=== PATIENT | male | born 1955 | race Caucasian/White ===

== ENCOUNTER 2018-12-04 17:03 | Emergency (ER) | payer OTHER ==
[~2018-12-04] VITALS: Ht 160 cm; Wt 84.4 kg
[2018-12-04 17:24] VITALS: Ht 160 cm; Wt 84.4 kg
[2018-12-04 21:05] VITALS: BP 185/78
== END 2018-12-04 21:05 | disposition home or self-care (01) ==
LOC: ED 17:03
DX: E11.319 Type 2 diabetes mellitus with unspecified diabetic retinopathy without macular edema (principal); H57.12 Ocular pain, left eye
CPT/HCPCS: J1885; Q0162

== ENCOUNTER 2019-11-09 14:48 | Emergency (ER) | payer OTHER ==
[~2019-11-09] VITALS: Ht 167.6 cm; Wt 82.6 kg
[2019-11-09 14:54] VITALS: BP 167/70; Ht 167.6 cm; Wt 82.6 kg
== END 2019-11-09 16:00 | disposition home or self-care (01) ==
LOC: ED 14:48
DX: H60.92 Unspecified otitis externa, left ear (principal); I10 Essential (primary) hypertension; E11.9 Type 2 diabetes mellitus without complications